=== PATIENT | female | born 1965 | race Hispanic/Latino ===

== ENCOUNTER 2018-12-26 11:06 | Inpatient (IN) | payer MEDICARE ==
[2018-12-26] VITALS (10 sets, daily range): BP systolic 114–175; BP diastolic 69–94
[~2018-12-26] VITALS: Ht 167.6 cm; Wt 93.9 kg
[2018-12-26 11:34] LABS: BASOPHILS % (AUTO) 0.3 % (0.0-5.0); HEMATOCRIT 44.9 % (36-48); LYMPHOCYTES % (AUTO) 4.2 % (21.0-51.0); MEAN CORPUSCULAR HEMOGLOBIN 28.7 pg (27.0-33.0); MEAN CORPUSCULAR HGB CONC 32.8 g/dL (32.0-36.0); MEAN CORPUSCULAR VOLUME 87.6 fL (79-99); NEUTROPHILS % (AUTO) 91.5 % (40.0-77.0); PLATELET COUNT (AUTO) 598 K/uL (130-400); RED BLOOD CELL COUNT(AUTO) 5.13 MIL/uL (4.00-5.50); RED CELL DISTRIBUTION WIDTH 13.6 % (11.0-15.5); WHITE BLOOD COUNT (AUTO) 29.6 K/uL (4.8-10.8)
[2018-12-26] MEDS ORDERED: SODIUM CHLORIDE 0.9% 1000ML 2,000 ML IV ONE (11:35)
[2018-12-26 11:50] LABS: APPEARANCE,URINE Clear (CLEAR); BILIRUBIN,URINE Negative (NEGATIVE); COLOR,URINE Yellow (YELLOW); GLUCOSE, URINE (UA) >=1000 mg/dL (NEGATIVE); KETONES,URINE >=80 mg/dL (NEGATIVE); LEUKOCYTE ESTERASE ,URINE Negative (NEGATIVE); NITRATE,URINE Negative (NEGATIVE); OCCULT BLOOD,URINE Large (NEGATIVE); PH,URINE 5.5 (5.0-8.0); PROTEIN,URINE POS 2+ mg/dL (NEGATIVE)
[2018-12-26 11:55] LABS: BACTERIA,URINE Rare /HPF (None Seen); MUCUS,URINE Moderate LPF (None Seen); RBC,URINE 0-1 /HPF (0-1); SQUAMOUS EPITHELIAL CELL,UR Rare /HPF (0-2); WBC,URINE 0-1 /HPF (0-1)
[2018-12-26 12:00] LABS: ABG BASE EXCESS -21.7 mmol/L (-2.0-3.0); ABG HCO3 4.9 mmol/L (21.0-28.0); ABG OXYGEN SATURATION 98.2 % (95.0-99.0); ABG PCO2 < 17 mmHg (32-45)
[2018-12-26 12:00] LABS: ALANINE AMINOTRANSFERASE 12 U/L (12-78); ALBUMIN 2.2 g/dL (3.5-5.0); ASPARTATE AMINOTRANSFERASE 17 U/L (10-37); BILIRUBIN,TOTAL 0.6 mg/dL (0.2-1.0); CREATINE KINASE, TOTAL 300 U/L (21-232); GLOMERULAR FILTR. RATE CALC 27 mL/min (>60); MYOGLOBIN 672 ng/mL (10-92); POTASSIUM 3.1 mmol/L (3.5-5.1); SODIUM SERUM 120 mmol/L (136-145); TOTAL PROTEIN, SERUM 8.2 g/dL (6.0-8.3); TROPONIN I < 0.04 ng/mL (0.00-0.06); UREA NITROGEN, BLOOD 41 mg/dL (7-18)
[2018-12-26 12:04] LABS: CARBON DIOXIDE 7 mmol/L (21-32); CHLORIDE 82 mmol/L (101-111)
[2018-12-26 12:05] LABS: PARTIAL THROMBOPLASTIN TIME 27.8 SEC (26.3-35.5); PROTHROMBIN TIME 10.5 SEC (9.6-11.6)
[2018-12-26] MEDS ORDERED: CEFTRIAXONE SODIUM 1 GM ONE (12:10)
[2018-12-26 12:14] LABS: GLUCOSE,RANDOM 760 mg/dL (70-105)
[2018-12-26] MEDS ORDERED: ONDANSETRON HCL 4 MG/2 ML VIAL ONE (12:25)
[2018-12-26] MEDS ORDERED: POTASSIUM BICARB/CIT AC 25 MEQ TABLET.EFF ONE (13:11)
[2018-12-26] MEDS ORDERED: POTASSIUM CHLORIDE 20MEQ/100ML 200 ML IV ONE (13:30)
[2018-12-26] MEDS ORDERED: LIDOCAINE HCL-MPF 1% 2ML VIAL ONE ×2 (13:30→20:18)
[2018-12-26] MEDS ORDERED: VANCOMYCIN 1GM+NS 250ML 250 ML IV ONE (13:30)
[2018-12-26 13:39] LABS: MAGNESIUM 2.2 mg/dL (1.80-2.40); PHOSPHORUS 3.5 mg/dL (2.5-4.9)
[2018-12-26 13:42] LABS: HEMOGLOBIN A1C 11.7 % (4.0-6.0)
[2018-12-26] MEDS ORDERED: INSULIN REGULAR, HUMAN 3ML 100 UNIT in SODIUM CHLORIDE 0.9% 99 ML IV PRN ×2 (13:45)
[2018-12-26] MEDS ORDERED: SODIUM CHLORIDE 0.9% 1000ML 1,000 ML IV ONE ×3 (14:40→20:36)
[2018-12-26] MEDS ORDERED: DEXTROSE 5 %-0.45 % NACL 1,000 ML IV PRN ×3 (14:54→15:01)
[2018-12-26] MEDS ORDERED: SODIUM CHLORIDE 0.9% 1000ML 1,000 ML IV SCH ×4 (14:54→15:01)
[2018-12-26] MEDS: SODIUM CHLORIDE 0.9% 1000ML 1,000 ML IV SCH ×6 (14:54→21:41)
[2018-12-26] MEDS ORDERED: POTASSIUM CHLORIDE 10MEQ/100ML 100 ML IV PRN ×3 (15:00→15:15)
[2018-12-26] MEDS ORDERED: VANCOMYCIN PROTOCOL PER PHARMACY IV SCH (15:15)
[2018-12-26] MEDS ORDERED: IPRATROPIUM/ALBUTEROL SULFATE 3 ML SOLUTION IH PRN (15:15)
[2018-12-26] MEDS: INSULIN HUMULIN R 100 UNIT/ML 3ML IV SCH (15:15)
[2018-12-26] MEDS ORDERED: ACETAMINOPHEN 325 MG TAB PO PRN (15:15)
[2018-12-26] MEDS ORDERED: ONDANSETRON HCL 4 MG/2 ML VIAL IV PRN (15:15)
[2018-12-26] MEDS ORDERED: ZOSYN 3.375GM+NS 50ML 50 ML IV ONE (16:42)
[2018-12-26] MEDS: CEFTAZIDIME PENTAHYDRATE 1 GM/VIAL IVP SCH (17:00)
[2018-12-26 18:46] LABS: CREATININE 1.6 mg/dL (0.5-1.5); POTASSIUM 3.2 mmol/L (3.5-5.1)
[2018-12-26] MEDS ORDERED: POTASSIUM CHLORIDE 20MEQ/100ML 100 ML IV ONE (20:18)
[2018-12-26] MEDS: ZOSYN 3.375GM+NS 50ML 50 ML IV SCH (21:00)
--- NOTE | 2018-12-26 22:22 | NUR ---
Pt. admitted from ER came in to ICU @2044 accompanied by her .Pt. is drowsy but arousable, appears weak and ill looking but answering questions and following commands.Pt. denies ay pain and not in any form of distress.Pt. is on insulin drip @ 3ml/hr as per report.K level 3.2 with ongoing Potassium coverage and all NS bolus and IV Antibiotic were given as per ER nurse Armaan.Spoke to ER nurse Whit,regarding consult for pulmo and surgeon ,she said both were already notified pending to see the pt.Dr. Meadows pending to be consulted in am.Will continue to monitor pt.
[2018-12-26 23:43] LABS: CREATININE 1.6 mg/dL (0.5-1.5)
[2018-12-27] VITALS (37 sets, daily range): BP systolic 119–171; BP diastolic 60–107
--- NOTE | 2018-12-27 00:40 | NUR ---
PATIENT SERVICES ASSISTANT AJ was notified regarding pt has right leg ulcer and not left and on insulin drip which is held at this time due to potassium level trending down which is 3.0 and will be covered.Okay to use Potassium 20 meq IV as per protocol.Notified about high BP received new order.
[2018-12-27] MEDS ORDERED: POTASSIUM CHLORIDE 20MEQ/100ML 200 ML IV ONE (00:44)
[2018-12-27] MEDS ORDERED: HYDRALAZINE HCL 20 MG/ML VIAL IV PRN (00:45)
[2018-12-27] MEDS: SODIUM CHLORIDE 0.9% 1000ML 1,000 ML IV SCH ×7 (01:01→22:44)
[2018-12-27] MEDS: POTASSIUM CHLORIDE 20MEQ/100ML 100 ML IV SCH ×3 (01:56→23:04)
[2018-12-27] MEDS: CEFTAZIDIME PENTAHYDRATE 1 GM/VIAL IVP SCH (04:50)
[2018-12-27] MEDS: ZOSYN 3.375GM+NS 50ML 50 ML IV SCH ×3 (04:50→20:02)
[2018-12-27 05:52] LABS: POTASSIUM 3.9 mmol/L (3.5-5.1)
[2018-12-27 06:01] LABS: EOSINOPHILS % (AUTO) 0.7 % (0.0-8.0); HEMATOCRIT 35.3 % (36-48); LYMPHOCYTES % (AUTO) 5.9 % (21.0-51.0); MEAN CORPUSCULAR HEMOGLOBIN 29.5 pg (27.0-33.0); MEAN CORPUSCULAR HGB CONC 35.6 g/dL (32.0-36.0); MONOCYTES % (AUTO) 4.8 % (3.0-13.0); NEUTROPHILS % (AUTO) 87.6 % (40.0-77.0); PLATELET COUNT (AUTO) 385 K/uL (130-400); RED BLOOD CELL COUNT(AUTO) 4.25 MIL/uL (4.00-5.50); RED CELL DISTRIBUTION WIDTH 14.1 % (11.0-15.5); WHITE BLOOD COUNT (AUTO) 22.2 K/uL (4.8-10.8)
[2018-12-27 06:08] LABS: ALBUMIN 1.8 g/dL (3.5-5.0); BILIRUBIN,TOTAL 0.3 mg/dL (0.2-1.0); CREATININE 1.4 mg/dL (0.5-1.5); TOTAL PROTEIN, SERUM 6.7 g/dL (6.0-8.3)
[2018-12-27] MEDS ORDERED: COMPOUND IV REFRIGERATED 1 EACH IVSOLN MISC PRN (06:30)
--- NOTE | 2018-12-27 07:19 | NUR ---
Pt. remained more alert and responsive,on insulin drip @1 unit/hr.Pending to follow up consult on today.Needs dressing order for wound.Endorsed care to incoming NOD at bedside using SBAr all questions answered.
[2018-12-27] MEDS: VANCOMYCIN 1.25 GM in SODIUM CHLORIDE 0.9% 250 ML IV SCH (08:36)
[2018-12-27] MEDS: FAMOTIDINE/PF 20 MG/2 ML VIAL IV SCH (08:36)
[2018-12-27] MEDS: ENOXAPARIN SODIUM 40 MG/0.4 ML SYRINGE SQ SCH (08:39)
--- NOTE | 2018-12-27 10:10 | NUR ---
WILLIAM MONET FOR DR GONZALEZ AT BEDSIDE TO EVALUATE PT, NO NEW ORDERS GIVEN AT THIS TIME.
--- NOTE | 2018-12-27 13:00 | NUR ---
DR VARNER AT BEDSIDE TO EVALUATE PATIENT, PER MD, NO NEED TO KEEP PATIENT ON CONTACT PRECAUTIONS, SINCE WOUNDS REMAIN WITH SCABS.
--- NOTE | 2018-12-27 13:55 | NUR ---
DR GONSALEZ AT BEDSIDE, NEW ORDERS GIVEN
--- NOTE | 2018-12-27 14:30 | NUR ---
DR MOTTA NOTIFIED VIA PHONE ABOUT NEW CONSULT, STATED HE'LL SEE PATIENT IN THE MORNING.
[2018-12-27] MEDS: INSULIN HUMULIN R 100 UNIT/ML 3ML IV SCH (15:15)
--- NOTE | 2018-12-27 17:28 | NUR ---
DC PLAN VISITED WITH PATIENT. PATIENT LIVES ALONE. INDEPENDENT ABLE TO PERFORM ADL'S. PROVIDER 5 HRS A DAY. PATIENT HAS WALKER, CANE, NEBULIZER. PATIENT HAS SOME WEAKNESS POST PROCEDURE RECOMMENDS SNF. ANDREA FOR [facility]. INFO SENT JONATHAN DARLING KNOW. Addendum: 12/27/18 at 1732 by JOE COLBY RN CM Amended: Links added. Addendum: 12/28/18 at 1301 by JOE COLBY RN CM WRONG PATIENT RECHARTED SEE NEXT NOTE.
--- NOTE | 2018-12-27 17:33 | NUR ---
DC PLAN VISITED WITH PATIENT. PATIENT AMS QUESTIONS ANSWERED BY SPOUSE. PATIENT LIVES WITH SPOUSE. INDEPENDENT ABLE TO PERFORM ADL'S. PATIENT HAS NO SERVICES OR DME'S. CM WILL CONTINUE TO FOLLOW. Addendum: 12/27/18 at 1735 by JOE COLBY RN CM Amended: Links added.
[2018-12-27 19:47] LABS: CREATININE 1.4 mg/dL (0.5-1.5)
[2018-12-27 19:55] LABS: POTASSIUM 2.8 mmol/L (3.5-5.1)
--- NOTE | 2018-12-27 20:02 | NUR ---
Insulin drip stopped K level 2.8 .Will cover potassium as per protocol
--- NOTE | 2018-12-27 22:48 | NUR ---
here and examined pt,received new order to start pt on sliding scale insulin #1 and lantus 20 units bid.Will carry order.
[2018-12-28] VITALS (18 sets, daily range): BP systolic 120–158; BP diastolic 67–90
[2018-12-28] MEDS: SODIUM CHLORIDE 0.9% 1000ML 1,000 ML IV SCH ×4 (00:21→20:34)
[2018-12-28] MEDS: INSULIN HUMULIN R 100 UNIT/ML 3ML SQ SCH ×5 (01:03→22:09)
[2018-12-28 03:49] LABS: BASOPHILS % (AUTO) 0.1 % (0.0-5.0); EOSINOPHILS % (AUTO) 0.1 % (0.0-8.0); HEMATOCRIT 32.4 % (36-48); MEAN CORPUSCULAR HEMOGLOBIN 28.5 pg (27.0-33.0); MEAN CORPUSCULAR HGB CONC 34.5 g/dL (32.0-36.0); MEAN CORPUSCULAR VOLUME 82.5 fL (79-99); MONOCYTES % (AUTO) 6.2 % (3.0-13.0); NEUTROPHILS % (AUTO) 83.6 % (40.0-77.0); PLATELET COUNT (AUTO) 323 K/uL (130-400); RED BLOOD CELL COUNT(AUTO) 3.93 MIL/uL (4.00-5.50); RED CELL DISTRIBUTION WIDTH 13.8 % (11.0-15.5); WHITE BLOOD COUNT (AUTO) 12.4 K/uL (4.8-10.8)
[2018-12-28 04:07] LABS: ALBUMIN 1.7 g/dL (3.5-5.0); CREATININE 1.3 mg/dL (0.5-1.5); MAGNESIUM 1.9 mg/dL (1.80-2.40)
[2018-12-28 04:13] LABS: POTASSIUM 2.9 mmol/L (3.5-5.1)
[2018-12-28] MEDS: ZOSYN 3.375GM+NS 50ML 50 ML IV SCH ×3 (04:50→20:23)
[2018-12-28 05:25] LABS: BILIRUBIN,TOTAL 0.2 mg/dL (0.2-1.0); TOTAL PROTEIN, SERUM 6.2 g/dL (6.0-8.3)
[2018-12-28] MEDS: POTASSIUM CHLORIDE 20MEQ/100ML 100 ML IV SCH ×3 (05:25→16:57)
--- NOTE | 2018-12-28 07:11 | NUR ---
Pt.condition remained the same .Pending to cover 2nd dose of Potassium.Bedside report given to incoming NOD using SBAR all questions answered.
[2018-12-28] MEDS ORDERED: INSULIN GLARGINE 100 UNITS/ML 10 ML VIAL SQ SCH (07:30)
[2018-12-28] MEDS: ASCORBIC ACID 500 MG TAB PO SCH (10:01)
[2018-12-28] MEDS: FAMOTIDINE/PF 20 MG/2 ML VIAL IV SCH (10:01)
[2018-12-28] MEDS: ENOXAPARIN SODIUM 40 MG/0.4 ML SYRINGE SQ SCH (10:01)
[2018-12-28] MEDS: ZINC SULFATE 220 CAPSULE PO SCH (10:07)
[2018-12-28] MEDS: VANCOMYCIN 1.25 GM in SODIUM CHLORIDE 0.9% 250 ML IV SCH (10:20)
--- NOTE | 2018-12-28 10:53 | NUR ---
2nd dose of potassium given as per protocol
--- NOTE | 2018-12-28 13:00 | NUR ---
Dr. Garcia rounded and reviewed plan of care for the day. Ordered for patient to be transferred, electrolyte replacement potassium po. Was notified about potassium level of 2.5.
[2018-12-28] MEDS: POTASSIUM CHLORIDE 10% ELIXIR 20 MEQ/15 ML UDCUP PO PRN ×2 (14:10→20:35)
--- NOTE | 2018-12-28 15:54 | NUR ---
Yadiel THOMAS for Dr. Danielle thomas. Ordered for wound on the right leg to be cleaned with Betadine
[2018-12-28] MEDS: POTASSIUM CHLORIDE 20 MEQ ERTAB PO PRN ×2 (17:05→18:42)
[2018-12-28] MEDS ORDERED: INSULIN HUMULIN R 100 UNIT/ML 3ML ONE (22:05)
[2018-12-29] VITALS (7 sets, daily range): BP systolic 121–163; BP diastolic 72–87
[2018-12-29] MEDS: SODIUM CHLORIDE 0.9% 1000ML 1,000 ML IV SCH ×3 (03:01→16:21)
--- NOTE | 2018-12-29 03:09 | NUR ---
spooling supervisor herer and ordered to transfewr pt to room 224.Report given to incoming NOD using SBAR all questions answered.
--- NOTE | 2018-12-29 03:20 | NUR ---
ASSESSMENT PATIENT TRANSFERRED VIA BED. NO COMPLAINTS OF PAIN AT THIS TIME. NO SIGNS OF DISTRESS. NO SHORTNESS OF BREATH NOTED. PATIENTS CALL LIGHT AND BEDSIDE TABLE WITHIN REACH.
[2018-12-29 04:19] LABS: BASOPHILS % (AUTO) 0.1 % (0.0-5.0); EOSINOPHILS % (AUTO) 0.3 % (0.0-8.0); LYMPHOCYTES % (AUTO) 14.7 % (21.0-51.0); MEAN CORPUSCULAR HEMOGLOBIN 28.2 pg (27.0-33.0); MEAN CORPUSCULAR HGB CONC 33.9 g/dL (32.0-36.0); MEAN CORPUSCULAR VOLUME 83.2 fL (79-99); MONOCYTES % (AUTO) 7.7 % (3.0-13.0); NEUTROPHILS % (AUTO) 77.2 % (40.0-77.0); PLATELET COUNT (AUTO) 319 K/uL (130-400); RED BLOOD CELL COUNT(AUTO) 4.08 MIL/uL (4.00-5.50); RED CELL DISTRIBUTION WIDTH 13.9 % (11.0-15.5)
[2018-12-29 04:33] LABS: ALBUMIN 1.8 g/dL (3.5-5.0); BILIRUBIN,TOTAL 0.2 mg/dL (0.2-1.0); TOTAL PROTEIN, SERUM 6.5 g/dL (6.0-8.3)
[2018-12-29 04:58] LABS: POTASSIUM 2.9 mmol/L (3.5-5.1)
[2018-12-29] MEDS: ZOSYN 3.375GM+NS 50ML 50 ML IV SCH ×3 (06:23→22:10)
[2018-12-29] MEDS: FAMOTIDINE 20MG TAB 20 MG TAB PO SCH (09:27)
[2018-12-29] MEDS: ASCORBIC ACID 500 MG TAB PO SCH (09:27)
[2018-12-29] MEDS: ZINC SULFATE 220 CAPSULE PO SCH (09:27)
[2018-12-29] MEDS: ENOXAPARIN SODIUM 40 MG/0.4 ML SYRINGE SQ SCH (09:28)
[2018-12-29] MEDS ORDERED: POTASSIUM CHLORIDE 10MEQ/100ML 10 MEQ/100 ML ML IV SCH (10:00)
[2018-12-29 10:18] LABS: MAGNESIUM 1.8 mg/dL (1.80-2.40); PHOSPHORUS 0.9 mg/dL (2.5-4.9)
[2018-12-29] MEDS: VANCOMYCIN 1.25 GM in SODIUM CHLORIDE 0.9% 250 ML IV SCH (11:01)
[2018-12-29] MEDS: POTASSIUM CHLORIDE 10% ELIXIR 20 MEQ/15 ML UDCUP PO PRN ×2 (11:01→13:48)
[2018-12-29] MEDS: INSULIN HUMULIN R 100 UNIT/ML 3ML SQ SCH ×2 (11:39→17:00)
[2018-12-29] MEDS: ACETAMINOPHEN 325 MG TAB PO PRN (13:40)
[2018-12-29] MEDS ORDERED: FLUCONAZOLE 200 MG/NS 100 ML 100 ML IV SCH (20:15)
[2018-12-29] MEDS: NEUTRA-PHOS PACKET 1 EACH PO SCH (22:14)
[2018-12-29] MEDS: INSULIN GLARGINE 100 UNITS/ML 10 ML VIAL SQ SCH (22:18)
[2018-12-29] MEDS: INSULIN LISPRO 100 UNIT/ML 3ML SQ SCH (22:19)
[2018-12-30] MEDS: SODIUM CHLORIDE 0.9% 1000ML 1,000 ML IV SCH ×2 (02:55→22:03)
[2018-12-30] MEDS ORDERED: MAGNESIUM 2GM PREMIX 50ML 50 ML IV ONE (02:56)
[2018-12-30] MEDS ORDERED: MAGNESIUM 2GM PREMIX 50ML 50 ML IV PRN (03:00)
[2018-12-30 03:28] VITALS: BP 149/84
[2018-12-30 04:21] LABS: MEAN CORPUSCULAR HEMOGLOBIN 28.6 pg (27.0-33.0); MEAN CORPUSCULAR HGB CONC 34.8 g/dL (32.0-36.0); MEAN CORPUSCULAR VOLUME 82.3 fL (79-99); NUCLEATED RED BLOOD CELLS 0.1 % (0.0-0.19); PLATELET COUNT (AUTO) 304 K/uL (130-400); RED BLOOD CELL COUNT(AUTO) 4.13 MIL/uL (4.00-5.50); RED CELL DISTRIBUTION WIDTH 13.7 % (11.0-15.5); WHITE BLOOD COUNT (AUTO) 12.3 K/uL (4.8-10.8)
[2018-12-30 04:38] LABS: MAGNESIUM 1.6 mg/dL (1.80-2.40); PHOSPHORUS 0.8 mg/dL (2.5-4.9); POTASSIUM 3.2 mmol/L (3.5-5.1)
[2018-12-30] MEDS: POTASSIUM CHLORIDE 20 MEQ ERTAB PO PRN ×2 (05:44→08:42)
[2018-12-30] MEDS: ZOSYN 3.375GM+NS 50ML 50 ML IV SCH ×3 (05:44→22:03)
[2018-12-30] MEDS: INSULIN LISPRO 100 UNIT/ML 3ML SQ SCH ×7 (06:08→21:58)
[2018-12-30] MEDS ORDERED: INSULIN HUMULIN R 100 UNIT/ML 3ML SQ SCH (07:30)
[2018-12-30 07:50] VITALS: BP 141/75
[2018-12-30] MEDS: ZINC SULFATE 220 CAPSULE PO SCH (08:42)
[2018-12-30] MEDS: ASCORBIC ACID 500 MG TAB PO SCH (08:43)
[2018-12-30] MEDS: FAMOTIDINE 20MG TAB 20 MG TAB PO SCH (08:43)
[2018-12-30] MEDS: NEUTRA-PHOS PACKET 1 EACH PO SCH ×4 (08:44→22:06)
[2018-12-30] MEDS: FLUCONAZOLE 200 MG/NS 100 ML 100 ML IV SCH (08:46)
[2018-12-30] MEDS: VANCOMYCIN 1.25 GM in SODIUM CHLORIDE 0.9% 250 ML IV SCH (11:03)
[2018-12-30] MEDS: ENOXAPARIN SODIUM 40 MG/0.4 ML SYRINGE SQ SCH (11:07)
[2018-12-30 15:41] VITALS: BP 141/83
[2018-12-30 19:39] VITALS: BP 130/70
[2018-12-30] MEDS: INSULIN GLARGINE 100 UNITS/ML 10 ML VIAL SQ SCH (21:58)
[2018-12-30] MEDS: ACETAMINOPHEN 325 MG TAB PO PRN (22:04)
[2018-12-30] MEDS ORDERED: POTASSIUM PHOS 15 mMOL+NS250ML 250 ML IV PRN (22:15)
[2018-12-30 23:35] VITALS: BP 124/68
[2018-12-31 04:25] VITALS: BP 128/72
[2018-12-31 04:39] LABS: HEMATOCRIT 29.4 % (36-48); MEAN CORPUSCULAR HEMOGLOBIN 28.1 pg (27.0-33.0); MEAN CORPUSCULAR HGB CONC 33.6 g/dL (32.0-36.0); MEAN CORPUSCULAR VOLUME 83.6 fL (79-99); PLATELET COUNT (AUTO) 227 K/uL (130-400); RED BLOOD CELL COUNT(AUTO) 3.51 MIL/uL (4.00-5.50); RED CELL DISTRIBUTION WIDTH 14.2 % (11.0-15.5); WHITE BLOOD COUNT (AUTO) 11.9 K/uL (4.8-10.8)
[2018-12-31 04:53] LABS: MAGNESIUM 2.1 mg/dL (1.80-2.40); PHOSPHORUS 1.7 mg/dL (2.5-4.9)
[2018-12-31 04:55] LABS: POTASSIUM 2.9 mmol/L (3.5-5.1)
[2018-12-31] MEDS: ZOSYN 3.375GM+NS 50ML 50 ML IV SCH ×3 (05:13→21:59)
[2018-12-31] MEDS: POTASSIUM CHLORIDE 20 MEQ ERTAB PO PRN ×3 (05:13→21:59)
[2018-12-31] MEDS: INSULIN LISPRO 100 UNIT/ML 3ML SQ SCH ×7 (06:29→22:15)
[2018-12-31 07:41] VITALS: BP 141/83
[2018-12-31] MEDS: FLUCONAZOLE 200 MG/NS 100 ML 100 ML IV SCH (10:06)
[2018-12-31] MEDS: ASCORBIC ACID 500 MG TAB PO SCH (10:06)
[2018-12-31] MEDS: ZINC SULFATE 220 CAPSULE PO SCH (10:06)
[2018-12-31] MEDS: NEUTRA-PHOS PACKET 1 EACH PO SCH ×4 (10:06→21:59)
[2018-12-31] MEDS: FAMOTIDINE 20MG TAB 20 MG TAB PO SCH (10:06)
[2018-12-31] MEDS: ENOXAPARIN SODIUM 40 MG/0.4 ML SYRINGE SQ SCH (10:07)
[2018-12-31] MEDS: VANCOMYCIN 1.25 GM in SODIUM CHLORIDE 0.9% 250 ML IV SCH (10:29)
[2018-12-31 11:40] VITALS: BP 158/85
--- NOTE | 2018-12-31 15:13 | NUR ---
[facility] CONSULT PATIENT ASSESSED REQUESTED: PATIENT PRESENTS WITH ULCER TO LEFT LEG LATERAL/ POSTERIOR; [facility] RECOMMENDATIONS SUBMITTED. Addendum: 12/31/18 at 1515 by GELA HUNTER LVN LVN W Amended: Links added.
[2018-12-31 15:35] VITALS: BP 134/88
[2018-12-31] MEDS ORDERED: LIDOCAINE HCL-MPF 1% 2ML VIAL ONE (18:11)
[2018-12-31] MEDS: POTASSIUM CHLORIDE 10% ELIXIR 20 MEQ/15 ML UDCUP PO PRN (18:13)
[2018-12-31] MEDS: POTASSIUM CHLORIDE 20MEQ/100ML 100 ML IV SCH (18:14)
[2018-12-31] MEDS: ACETAMINOPHEN 325 MG TAB PO PRN (18:30)
[2018-12-31 19:18] VITALS: BP 151/83
[2018-12-31] MEDS ORDERED: INSULIN GLARGINE 100 UNITS/ML 10 ML VIAL SQ SCH (21:00)
[2018-12-31 23:17] VITALS: BP 160/89
[2019-01-01 00:45] VITALS: BP 145/85
--- NOTE | 2019-01-01 02:00 | NUR ---
PATIENT C/O PAIN TO CURRENT IV. NEW IV STARTED TO RAC BY CÉSAR ANGELO
[2019-01-01 03:37] VITALS: BP 144/76
--- NOTE | 2019-01-01 04:53 | NUR ---
ASSESSMENT PATIENT RESTING IN BED. NO C/O OF CHEST PAIN OR SOB. RLE DRESSING CDI. DAY SHIFT CHANGED DRESSING. PATIENT DOES HAVE EDEMA TO BUE AND BLE. PATIENT IS NON COMPLIANT WITH DIET. PATIENT HAS FRIED CHICKEN AT BEDSIDE. BLOOD SUGAR IN 400s. Mold Swabber aware. NO ORDERS GIVEN. TOLERATING ZOSYN. NO C/O N/V/D OR RASH.
[2019-01-01] MEDS: INSULIN LISPRO 100 UNIT/ML 3ML SQ SCH ×6 (05:58→16:28)
[2019-01-01] MEDS: ZOSYN 3.375GM+NS 50ML 50 ML IV SCH ×2 (06:37→13:54)
[2019-01-01 06:47] LABS: ALBUMIN 1.5 g/dL (3.5-5.0); BILIRUBIN,TOTAL 0.2 mg/dL (0.2-1.0); CREATININE 0.9 mg/dL (0.5-1.5); POTASSIUM 3.4 mmol/L (3.5-5.1); TOTAL PROTEIN, SERUM 6.2 g/dL (6.0-8.3)
[2019-01-01 07:26] VITALS: BP 141/84
--- NOTE | 2019-01-01 07:45 | NUR ---
AM ASSESSMENT PT SITTING IN BED, RESTING. A/O X 3. NO SOB. NO DISTRESS NOTED. DENIES CHEST PAIN OR DISCOMFORT. DENIES PALPITATIONS. DENIES PAIN TO RLE ULCER @ THIS TIME. TELE: STACH. DENIES N/V AND/OR DIARRHEA. BEDREST. PHYS THERAPY TO EVAL TODAY. INSTRUCTED TO CALL FOR ASSISTANCE. CALL MARIKA W/IN REACH.
[2019-01-01] MEDS: FLUCONAZOLE 200 MG/NS 100 ML 100 ML IV SCH (08:09)
[2019-01-01] MEDS: FAMOTIDINE 20MG TAB 20 MG TAB PO SCH (08:09)
[2019-01-01] MEDS: VANCOMYCIN 1.25 GM in SODIUM CHLORIDE 0.9% 250 ML IV SCH (08:09)
[2019-01-01] MEDS: ZINC SULFATE 220 CAPSULE PO SCH (08:09)
[2019-01-01] MEDS: ASCORBIC ACID 500 MG TAB PO SCH (08:09)
[2019-01-01] MEDS: ENOXAPARIN SODIUM 40 MG/0.4 ML SYRINGE SQ SCH (08:10)
[2019-01-01] MEDS: NEUTRA-PHOS PACKET 1 EACH PO SCH ×3 (08:12→16:40)
[2019-01-01] MEDS: ACETAMINOPHEN 325 MG TAB PO PRN ×2 (11:42→16:54)
[2019-01-01 11:45] VITALS: BP 152/92
[2019-01-01 13:36] LABS: INR 0.92 (0.85-1.15); PROTHROMBIN TIME 9.7 SEC (9.6-11.6)
[2019-01-01] MEDS ORDERED: HONEY 1 APPL/ML TUBE TP SCH ×2 (14:30)
--- NOTE | 2019-01-01 15:08 | NUR ---
DC PLAN VISITED WITH PATIENT. ANDREA SIGNED FOR [facility]. INFO SENT REP NOTIFIED AND VISITED. [facility] Addendum: 01/01/19 at 1509 by JOE COLBY RN CM Amended: Links added.
[2019-01-01 15:21] VITALS: BP 147/80
--- NOTE | 2019-01-01 15:37 | NUR ---
RD NOTIFICATION DX: DKA, LEG GANGRENE, HYPOVOLEMIA, METABOLIC ENCEPHALOPATHY. HX: HTN, DM, HYPERLIPIDEMIA. DIET: HEART HEALTHY. PO INTAKE 100% AND HAS GOOD APPETITE PER PT. LBM: 12/31. PT ADMITS TO NOT FOLLOW DM DIET AT HOME. PT ONLY TAKES MEDICATIONS AT HOME. PT STATED SHE IS STILL HUNGRY BETWEEN MEALS, PT WOULD LIKE SNACKS. PT WAS EDUCATED IN THE PAST REGARDING DM2 DIET, HOWEVER IS NON-COMPLIANT. RD PROVIDED DM DIET AND NUTRITION EDUCATION. MATERIALS PROVIDED. RD RECOMMENDS CONTINUE CURRENT DIET, ADD 75GMCCD TO DIET ORDER. OFFER DM SNACKS BETWEEN MEALS. RD PROVIDED DM DIET AND NUTRITION EDUCATION. RD WILL CONTINUE TO MONITOR AND FOLLOW UP NEEDED. Addendum: 01/01/19 at [address] Amended: Links added.
--- NOTE | 2019-01-01 15:39 | NUR ---
DIET EDUCATION PT WAS EDUCATED IN THE PAST REGARDING DM2 DIET, HOWEVER IS NON-COMPLIANT. [facility] PROVIDED DM DIET AND NUTRITION EDUCATION. MATERIALS PROVIDED. PT WAS ENCOURAGED TO LET US KNOW IF SHE HAD ANY QUESTIONS OR CONCERNS REGARDING DM DIET AND NUTRITION. Addendum: 01/01/19 at [address] Amended: Links added.
--- NOTE | 2019-01-01 17:06 | NUR ---
DISCHARGE MED REC FAXED TO [facility].
--- NOTE | 2019-01-01 17:51 | NUR ---
DISCHARGE REPORT GIVEN TO FRANCISCO AREVALO LVN. Addendum: 01/01/19 at 1911 by OSMAN ARANGO RN RN [facility]NR TRANSPORT TO [facility] M[facility]INE PT TO TRANSFER TO [facility].
--- NOTE | 2019-01-01 18:01 | NUR ---
DISCHARGE IV DISCONTINUED @ THIS TIME. TELE CALVIN REMOVED EARLIER.
[2019-01-01 19:05] VITALS: BP 149/89
--- NOTE | 2019-01-01 19:23 | NUR ---
DC PLAN DARLING CALLED PATIENT ACCEPTED AT 1615 PATIENT HAD ONLY BEEN PENDING PICC PLACEMENT FOR DC. LET NURSE AND KNOW. MED REC DONE. JERI SENT. Addendum: 01/01/19 at 1924 by JOE COLBY RN CM Amended: Links added.
== END 2019-01-01 20:15 | DRG 853 ==
LOC: EDH 11:06 → EDHIP 15:01 → 2BH 20:46 → 2DH 12-29 02:42
PROVIDERS: ADMIT Internal Medicine; ATTEND Internal Medicine
PROC: 02HV33Z Insertion of Infusion Device into Superior Vena Cava, Percutaneous Approach (ICD-10-PCS; principal; 2019-01-01)
PROC: 0JBN0ZZ Excision of Right Lower Leg Subcutaneous Tissue and Fascia, Open Approach (ICD-10-PCS; 2019-01-01)
DX: A41.9 Sepsis, unspecified organism (principal); E43 Unspecified severe protein-calorie malnutrition; G93.41 Metabolic encephalopathy; E11.11 Type 2 diabetes mellitus with ketoacidosis with coma; E87.1 Hypo-osmolality and hyponatremia; L03.115 Cellulitis of right lower limb; N17.9 Acute kidney failure, unspecified; M62.82 Rhabdomyolysis; E11.52 Type 2 diabetes mellitus with diabetic peripheral angiopathy with gangrene; L03.116 Cellulitis of left lower limb; L97.919 Non-pressure chronic ulcer of unspecified part of right lower leg with unspecified severity; E66.9 Obesity, unspecified; E78.5 Hyperlipidemia, unspecified; E83.39 Other disorders of phosphorus metabolism; E11.65 Type 2 diabetes mellitus with hyperglycemia; E83.42 Hypomagnesemia; E86.1 Hypovolemia; E87.8 Other disorders of electrolyte and fluid balance, not elsewhere classified; I10 Essential (primary) hypertension; L89.899 Pressure ulcer of other site, unspecified stage; E86.0 Dehydration; E87.6 Hypokalemia; W19.XXXA Unspecified fall, initial encounter; Y93.89 Activity, other specified; Y92.098 Other place in other non-institutional residence as the place of occurrence of the external cause; Y99.8 Other external cause status; Z68.33 Body mass index [BMI] 33.0-33.9, adult; Z74.01 Bed confinement status; Z91.19 Patient's noncompliance with other medical treatment and regimen; Z83.3 Family history of diabetes mellitus; Z82.49 Family history of ischemic heart disease and other diseases of the circulatory system
CPT/HCPCS: 36415; 36600; 70450; 70551; 71045; 80048; 80053; 80202; 81001; 82140; 82550; 82803; 82947; 82948; 83036; 83605; 83735; 83874; 84100; 84132; 84145; 84484; 85025; 85027; 85610; 85730; 87040; 87088; 93005; 93925; 93970; 94664; 97039; 99291; C1894; G0378; J0696; J0713; J1450; J1650; J1815; J2405; J2543; J3370; J3475; J3480; J3490; J7030

== ENCOUNTER → 2019-01-15 | Outpatient (CLI) | payer MEDICARE ==
[~2019-01-15] MED LIST: LIDOCAINE/PRILOCAINE CREAM 5GM TUBE TP ONE
[2019-01-15 15:05] VITALS: BP 134/86
== END | disposition home or self-care (01) ==
LOC: WHH 13:15
PROVIDERS: ATTEND Family Medicine
DX: E11.622 Type 2 diabetes mellitus with other skin ulcer (principal); L97.812 Non-pressure chronic ulcer of other part of right lower leg with fat layer exposed; E11.52 Type 2 diabetes mellitus with diabetic peripheral angiopathy with gangrene; I96 Gangrene, not elsewhere classified; E78.5 Hyperlipidemia, unspecified; E66.01 Morbid (severe) obesity due to excess calories; I10 Essential (primary) hypertension; Z86.73 Personal history of transient ischemic attack (TIA), and cerebral infarction without residual deficits; Z68.1 Body mass index [BMI] 19.9 or less, adult; Y83.5 Amputation of limb(s) as the cause of abnormal reaction of the patient, or of later complication, without mention of misadventure at the time of the procedure
CPT/HCPCS: 11042; 11045; 87070; 87077; 87186; A6248; J3490

== ENCOUNTER → 2019-01-22 | Outpatient (CLI) | payer MEDICARE ==
[~2019-01-22] MED LIST changes: +LIDOCAINE HCL 2% JELLY 5 ML TP ONE; -LIDOCAINE/PRILOCAINE CREAM 5GM TUBE TP ONE
[2019-01-22 14:55] VITALS: BP 126/83
== END | disposition home or self-care (01) ==
LOC: WHH 13:25
PROVIDERS: ATTEND Family Medicine
DX: E11.622 Type 2 diabetes mellitus with other skin ulcer (principal); L97.812 Non-pressure chronic ulcer of other part of right lower leg with fat layer exposed; E11.52 Type 2 diabetes mellitus with diabetic peripheral angiopathy with gangrene; I96 Gangrene, not elsewhere classified; E78.5 Hyperlipidemia, unspecified; E66.01 Morbid (severe) obesity due to excess calories; I10 Essential (primary) hypertension; Z86.73 Personal history of transient ischemic attack (TIA), and cerebral infarction without residual deficits; Z68.1 Body mass index [BMI] 19.9 or less, adult; Y83.5 Amputation of limb(s) as the cause of abnormal reaction of the patient, or of later complication, without mention of misadventure at the time of the procedure
CPT/HCPCS: 11042; 11045

== ENCOUNTER → 2019-02-01 | Outpatient (CLI) | payer MEDICARE ==
[~2019-02-01] MED LIST changes: -LIDOCAINE HCL 2% JELLY 5 ML TP ONE; +LIDOCAINE HCL 4% LTA SOL 4 ML VIAL TP ONE
[2019-02-01 14:56] VITALS: BP 113/78
== END | disposition home or self-care (01) ==
LOC: WHH 13:00
PROVIDERS: ATTEND Family Medicine
DX: E11.622 Type 2 diabetes mellitus with other skin ulcer (principal); L97.812 Non-pressure chronic ulcer of other part of right lower leg with fat layer exposed; E11.52 Type 2 diabetes mellitus with diabetic peripheral angiopathy with gangrene; I96 Gangrene, not elsewhere classified; E78.5 Hyperlipidemia, unspecified; E66.01 Morbid (severe) obesity due to excess calories; I10 Essential (primary) hypertension; Z86.73 Personal history of transient ischemic attack (TIA), and cerebral infarction without residual deficits; Z68.1 Body mass index [BMI] 19.9 or less, adult
CPT/HCPCS: 11042; 11045; A6197

== ENCOUNTER → 2019-02-05 | Outpatient (CLI) | payer MEDICARE ==
[~2019-02-05] MED LIST changes: +LIDOCAINE HCL 2% JELLY 5 ML TP ONE
[2019-02-05 15:27] VITALS: BP 125/98
== END | disposition home or self-care (01) ==
LOC: WHH 13:00
PROVIDERS: ATTEND Family Medicine
DX: T81.89XD Other complications of procedures, not elsewhere classified, subsequent encounter (principal); E11.52 Type 2 diabetes mellitus with diabetic peripheral angiopathy with gangrene; I96 Gangrene, not elsewhere classified; I10 Essential (primary) hypertension; E78.5 Hyperlipidemia, unspecified; E66.01 Morbid (severe) obesity due to excess calories; Z86.73 Personal history of transient ischemic attack (TIA), and cerebral infarction without residual deficits; Y83.8 Other surgical procedures as the cause of abnormal reaction of the patient, or of later complication, without mention of misadventure at the time of the procedure
CPT/HCPCS: 11042; 11045

== ENCOUNTER → 2019-02-11 | Outpatient (CLI) | payer MEDICARE ==
[~2019-02-11] MED LIST changes: +HONEY 1 APPL/ML TUBE TP ONE; -LIDOCAINE HCL 2% JELLY 5 ML TP ONE; -LIDOCAINE HCL 4% LTA SOL 4 ML VIAL TP ONE
[2019-02-11 10:40] VITALS: BP 151/98
== END | disposition home or self-care (01) ==
LOC: WHH 09:45
PROVIDERS: ATTEND Family Medicine
DX: T81.89XD Other complications of procedures, not elsewhere classified, subsequent encounter (principal); E11.52 Type 2 diabetes mellitus with diabetic peripheral angiopathy with gangrene; I96 Gangrene, not elsewhere classified; I10 Essential (primary) hypertension; E78.5 Hyperlipidemia, unspecified; E66.01 Morbid (severe) obesity due to excess calories; Z86.73 Personal history of transient ischemic attack (TIA), and cerebral infarction without residual deficits; Y83.8 Other surgical procedures as the cause of abnormal reaction of the patient, or of later complication, without mention of misadventure at the time of the procedure
CPT/HCPCS: 93922; G0463

== ENCOUNTER → 2019-02-12 | Outpatient (CLI) | payer MEDICARE ==
[~2019-02-12] MED LIST changes: +LIDOCAINE HCL 4% LTA SOL 4 ML VIAL TP ONE
[2019-02-12 15:25] VITALS: BP 96/61
== END | disposition home or self-care (01) ==
LOC: WHH 13:00
PROVIDERS: ATTEND Family Medicine
DX: T81.89XD Other complications of procedures, not elsewhere classified, subsequent encounter (principal); E11.52 Type 2 diabetes mellitus with diabetic peripheral angiopathy with gangrene; I96 Gangrene, not elsewhere classified; I10 Essential (primary) hypertension; E78.5 Hyperlipidemia, unspecified; E66.01 Morbid (severe) obesity due to excess calories; Z86.73 Personal history of transient ischemic attack (TIA), and cerebral infarction without residual deficits; Y83.8 Other surgical procedures as the cause of abnormal reaction of the patient, or of later complication, without mention of misadventure at the time of the procedure
CPT/HCPCS: 11042; 11045

== ENCOUNTER → 2019-02-26 | Outpatient (CLI) | payer MEDICARE ==
[~2019-02-26] MED LIST changes: -HONEY 1 APPL/ML TUBE TP ONE; +LIDOCAINE HCL 2% JELLY 5 ML TP ONE; -LIDOCAINE HCL 4% LTA SOL 4 ML VIAL TP ONE
[2019-02-26 14:20] VITALS: BP 124/79
== END | disposition home or self-care (01) ==
LOC: WHH 12:30
PROVIDERS: ATTEND Family Medicine
DX: T81.89XD Other complications of procedures, not elsewhere classified, subsequent encounter (principal); E11.52 Type 2 diabetes mellitus with diabetic peripheral angiopathy with gangrene; I96 Gangrene, not elsewhere classified; I10 Essential (primary) hypertension; E78.5 Hyperlipidemia, unspecified; E66.01 Morbid (severe) obesity due to excess calories; Z86.73 Personal history of transient ischemic attack (TIA), and cerebral infarction without residual deficits; Y83.8 Other surgical procedures as the cause of abnormal reaction of the patient, or of later complication, without mention of misadventure at the time of the procedure
CPT/HCPCS: 11042; 11045; A6197

== ENCOUNTER → 2019-03-19 | Outpatient (CLI) | payer MEDICARE ==
[~2019-03-19] MED LIST changes: -LIDOCAINE HCL 2% JELLY 5 ML TP ONE; +LIDOCAINE/PRILOCAINE CREAM 5GM TUBE TP ONE
[2019-03-19 15:28] VITALS: BP 144/99
== END | disposition home or self-care (01) ==
LOC: WHH 13:00
PROVIDERS: ATTEND Family Medicine
DX: S81.801D Unspecified open wound, right lower leg, subsequent encounter (principal); E11.52 Type 2 diabetes mellitus with diabetic peripheral angiopathy with gangrene; I96 Gangrene, not elsewhere classified; I10 Essential (primary) hypertension; E78.5 Hyperlipidemia, unspecified; E66.01 Morbid (severe) obesity due to excess calories; Z86.73 Personal history of transient ischemic attack (TIA), and cerebral infarction without residual deficits; X58.XXXD Exposure to other specified factors, subsequent encounter
CPT/HCPCS: 11042; 11045; A6197; J3490

== ENCOUNTER → 2019-04-02 | Outpatient (CLI) | payer MEDICARE ==
[~2019-04-02] MED LIST changes: +HONEY 1 APPL/ML TUBE TP ONE; +LIDOCAINE HCL 4% LTA SOL 4 ML VIAL TP ONE; -LIDOCAINE/PRILOCAINE CREAM 5GM TUBE TP ONE
[2019-04-02 14:52] VITALS: BP 143/97
== END | disposition home or self-care (01) ==
LOC: WHH 13:00
PROVIDERS: ATTEND Family Medicine
DX: S81.801D Unspecified open wound, right lower leg, subsequent encounter (principal); E11.52 Type 2 diabetes mellitus with diabetic peripheral angiopathy with gangrene; I96 Gangrene, not elsewhere classified; I10 Essential (primary) hypertension; E78.5 Hyperlipidemia, unspecified; E66.01 Morbid (severe) obesity due to excess calories; R53.81 Other malaise; Z86.73 Personal history of transient ischemic attack (TIA), and cerebral infarction without residual deficits; X58.XXXD Exposure to other specified factors, subsequent encounter
CPT/HCPCS: 11042; 11045; A6197

== ENCOUNTER → 2019-04-16 | Outpatient (CLI) | payer MEDICARE ==
[2019-04-16 14:57] VITALS: BP 129/68
== END | disposition home or self-care (01) ==
LOC: WHH 13:00
PROVIDERS: ATTEND Family Medicine
DX: S81.801D Unspecified open wound, right lower leg, subsequent encounter (principal); E11.52 Type 2 diabetes mellitus with diabetic peripheral angiopathy with gangrene; I96 Gangrene, not elsewhere classified; I10 Essential (primary) hypertension; E66.01 Morbid (severe) obesity due to excess calories; E78.5 Hyperlipidemia, unspecified; R53.81 Other malaise; Z86.73 Personal history of transient ischemic attack (TIA), and cerebral infarction without residual deficits; X58.XXXD Exposure to other specified factors, subsequent encounter
CPT/HCPCS: 11042; A6197; 17250

== ENCOUNTER → 2019-04-30 | Outpatient (CLI) | payer MEDICARE ==
[~2019-04-30] MED LIST changes: -HONEY 1 APPL/ML TUBE TP ONE; -LIDOCAINE HCL 4% LTA SOL 4 ML VIAL TP ONE; +LIDOCAINE/PRILOCAINE CREAM 5GM TUBE TP ONE
[2019-04-30 15:57] VITALS: BP 145/94
== END | disposition home or self-care (01) ==
LOC: WHH 13:00
PROVIDERS: ATTEND Family Medicine
DX: S81.801D Unspecified open wound, right lower leg, subsequent encounter (principal); E11.52 Type 2 diabetes mellitus with diabetic peripheral angiopathy with gangrene; I96 Gangrene, not elsewhere classified; I10 Essential (primary) hypertension; E66.01 Morbid (severe) obesity due to excess calories; E78.5 Hyperlipidemia, unspecified; R53.81 Other malaise; Z86.73 Personal history of transient ischemic attack (TIA), and cerebral infarction without residual deficits; X58.XXXD Exposure to other specified factors, subsequent encounter
CPT/HCPCS: 15002; A6197; J3490; 11042

== ENCOUNTER → 2019-05-07 | Outpatient (CLI) | payer MEDICARE ==
[2019-05-07 16:43] VITALS: BP 136/90
== END | disposition home or self-care (01) ==
LOC: WHH 13:00
PROVIDERS: ATTEND Family Medicine
DX: E11.622 Type 2 diabetes mellitus with other skin ulcer (principal); L97.212 Non-pressure chronic ulcer of right calf with fat layer exposed; E11.52 Type 2 diabetes mellitus with diabetic peripheral angiopathy with gangrene; I96 Gangrene, not elsewhere classified; I10 Essential (primary) hypertension; E78.5 Hyperlipidemia, unspecified; E66.01 Morbid (severe) obesity due to excess calories; Z86.73 Personal history of transient ischemic attack (TIA), and cerebral infarction without residual deficits
CPT/HCPCS: 11042; 15271; A6197; A6207; J3490; Q4133

== ENCOUNTER → 2019-05-14 | Outpatient (CLI) | payer MEDICARE ==
[2019-05-14 16:26] VITALS: BP 123/78
== END | disposition home or self-care (01) ==
LOC: WHH 13:00
PROVIDERS: ATTEND Family Medicine
DX: T86.828 Other complications of skin graft (allograft) (autograft) (principal); E11.52 Type 2 diabetes mellitus with diabetic peripheral angiopathy with gangrene; I96 Gangrene, not elsewhere classified; I10 Essential (primary) hypertension; E78.5 Hyperlipidemia, unspecified; E66.01 Morbid (severe) obesity due to excess calories; Z86.73 Personal history of transient ischemic attack (TIA), and cerebral infarction without residual deficits; Y83.2 Surgical operation with anastomosis, bypass or graft as the cause of abnormal reaction of the patient, or of later complication, without mention of misadventure at the time of the procedure
CPT/HCPCS: 11042; 15271; A6196; A6197; A6207; Q4133

== ENCOUNTER → 2019-05-21 | Outpatient (CLI) | payer MEDICARE ==
[2019-05-21 15:40] VITALS: BP 132/84
== END | disposition home or self-care (01) ==
LOC: WHH 13:00
PROVIDERS: ATTEND Family Medicine
DX: T86.828 Other complications of skin graft (allograft) (autograft) (principal); E11.52 Type 2 diabetes mellitus with diabetic peripheral angiopathy with gangrene; I96 Gangrene, not elsewhere classified; I10 Essential (primary) hypertension; E78.5 Hyperlipidemia, unspecified; E66.01 Morbid (severe) obesity due to excess calories; Z86.73 Personal history of transient ischemic attack (TIA), and cerebral infarction without residual deficits; Y83.2 Surgical operation with anastomosis, bypass or graft as the cause of abnormal reaction of the patient, or of later complication, without mention of misadventure at the time of the procedure
CPT/HCPCS: 15271; A6196; A6207; A6209; Q4133

== ENCOUNTER → 2019-05-28 | Outpatient (CLI) | payer MEDICARE ==
[2019-05-28 14:52] VITALS: BP 131/82
== END | disposition home or self-care (01) ==
LOC: WHH 13:00
PROVIDERS: ATTEND Family Medicine
DX: T86.828 Other complications of skin graft (allograft) (autograft) (principal); E11.52 Type 2 diabetes mellitus with diabetic peripheral angiopathy with gangrene; I96 Gangrene, not elsewhere classified; I10 Essential (primary) hypertension; E78.5 Hyperlipidemia, unspecified; E66.01 Morbid (severe) obesity due to excess calories; Z86.73 Personal history of transient ischemic attack (TIA), and cerebral infarction without residual deficits; Y83.2 Surgical operation with anastomosis, bypass or graft as the cause of abnormal reaction of the patient, or of later complication, without mention of misadventure at the time of the procedure
CPT/HCPCS: 15271; A6197; A6207; A6209; Q4133

== ENCOUNTER → 2019-06-04 | Outpatient (CLI) | payer MEDICARE ==
[2019-06-04 15:16] VITALS: BP 118/80
== END | disposition home or self-care (01) ==
LOC: WHH 13:00
PROVIDERS: ATTEND Family Medicine
DX: T86.828 Other complications of skin graft (allograft) (autograft) (principal); E11.52 Type 2 diabetes mellitus with diabetic peripheral angiopathy with gangrene; I96 Gangrene, not elsewhere classified; I10 Essential (primary) hypertension; E78.5 Hyperlipidemia, unspecified; E66.01 Morbid (severe) obesity due to excess calories; Z86.73 Personal history of transient ischemic attack (TIA), and cerebral infarction without residual deficits; Y83.2 Surgical operation with anastomosis, bypass or graft as the cause of abnormal reaction of the patient, or of later complication, without mention of misadventure at the time of the procedure
CPT/HCPCS: 15271; A6197; A6207; A6213; Q4133

== ENCOUNTER → 2019-06-11 | Outpatient (CLI) | payer MEDICARE ==
[2019-06-11 14:57] VITALS: BP 132/60
== END | disposition home or self-care (01) ==
LOC: WHH 13:00
PROVIDERS: ATTEND Family Medicine
DX: T86.828 Other complications of skin graft (allograft) (autograft) (principal); E11.622 Type 2 diabetes mellitus with other skin ulcer; L97.211 Non-pressure chronic ulcer of right calf limited to breakdown of skin; E11.52 Type 2 diabetes mellitus with diabetic peripheral angiopathy with gangrene; I96 Gangrene, not elsewhere classified; I10 Essential (primary) hypertension; E78.5 Hyperlipidemia, unspecified; E66.01 Morbid (severe) obesity due to excess calories; Z86.73 Personal history of transient ischemic attack (TIA), and cerebral infarction without residual deficits; Y83.2 Surgical operation with anastomosis, bypass or graft as the cause of abnormal reaction of the patient, or of later complication, without mention of misadventure at the time of the procedure
CPT/HCPCS: 15271; A6196; A6207; Q4133

== ENCOUNTER → 2019-06-18 | Outpatient (CLI) | payer MEDICARE ==
[2019-06-18 14:47] VITALS: BP 119/83
== END | disposition home or self-care (01) ==
LOC: WHH 13:00
PROVIDERS: ATTEND Family Medicine
DX: T86.828 Other complications of skin graft (allograft) (autograft) (principal); E11.52 Type 2 diabetes mellitus with diabetic peripheral angiopathy with gangrene; I96 Gangrene, not elsewhere classified; I10 Essential (primary) hypertension; E78.5 Hyperlipidemia, unspecified; E66.01 Morbid (severe) obesity due to excess calories; Z86.73 Personal history of transient ischemic attack (TIA), and cerebral infarction without residual deficits; Y83.2 Surgical operation with anastomosis, bypass or graft as the cause of abnormal reaction of the patient, or of later complication, without mention of misadventure at the time of the procedure
CPT/HCPCS: 15271; A6196; A6207; Q4133

== ENCOUNTER → 2019-06-25 | Outpatient (CLI) | payer MEDICARE ==
[2019-06-25 15:33] VITALS: BP 120/79
== END | disposition home or self-care (01) ==
LOC: WHH 13:00
PROVIDERS: ATTEND Family Medicine
DX: T86.828 Other complications of skin graft (allograft) (autograft) (principal); E11.52 Type 2 diabetes mellitus with diabetic peripheral angiopathy with gangrene; I96 Gangrene, not elsewhere classified; I10 Essential (primary) hypertension; E78.5 Hyperlipidemia, unspecified; E66.01 Morbid (severe) obesity due to excess calories; Z86.73 Personal history of transient ischemic attack (TIA), and cerebral infarction without residual deficits; Y83.2 Surgical operation with anastomosis, bypass or graft as the cause of abnormal reaction of the patient, or of later complication, without mention of misadventure at the time of the procedure
CPT/HCPCS: 15271; A6196; A6207; Q4133

== ENCOUNTER → 2019-07-02 | Outpatient (CLI) | payer MEDICARE ==
[2019-07-02 15:33] VITALS: BP 130/83
== END | disposition home or self-care (01) ==
LOC: WHH 13:00
PROVIDERS: ATTEND Family Medicine
DX: S81.801D Unspecified open wound, right lower leg, subsequent encounter (principal); E11.52 Type 2 diabetes mellitus with diabetic peripheral angiopathy with gangrene; I96 Gangrene, not elsewhere classified; I10 Essential (primary) hypertension; E78.5 Hyperlipidemia, unspecified; E66.01 Morbid (severe) obesity due to excess calories; Z86.73 Personal history of transient ischemic attack (TIA), and cerebral infarction without residual deficits; X58.XXXD Exposure to other specified factors, subsequent encounter
CPT/HCPCS: A6210; G0463

== ENCOUNTER 2019-07-09 13:00 | Outpatient (CLI) | payer MEDICARE ==
[2019-07-09 14:54] VITALS: BP 116/82
--- NOTE | 2019-07-09 14:57 | NUR ---
Patient was transferred to ED via wheelchair by [facility] staff due to c/o pain to RLE and swelling. Dr. Andrade requesting to have patient evaluated and have doppler study done to r/o DVT. Report called to ED; spoke with Dr. Tavarez Addendum: 07/09/19 at 1501 by LOLI MOREAU RN/ Amended: Links added.
== END 2019-07-09 15:12 | disposition home or self-care (01) ==
LOC: WHH 13:00
PROVIDERS: ATTEND Family Medicine
DX: S81.801D Unspecified open wound, right lower leg, subsequent encounter (principal); E11.52 Type 2 diabetes mellitus with diabetic peripheral angiopathy with gangrene; I96 Gangrene, not elsewhere classified; I10 Essential (primary) hypertension; E78.5 Hyperlipidemia, unspecified; E66.01 Morbid (severe) obesity due to excess calories; Z86.73 Personal history of transient ischemic attack (TIA), and cerebral infarction without residual deficits; X58.XXXD Exposure to other specified factors, subsequent encounter
CPT/HCPCS: G0463

== ENCOUNTER 2019-07-09 14:03 | Emergency (ER) | payer MEDICARE ==
[2019-07-09 14:30] LABS: BASOPHILS % (AUTO) 0.5 % (0.0-5.0); LYMPHOCYTES % (AUTO) 30.9 % (21.0-51.0); MEAN CORPUSCULAR HEMOGLOBIN 26.8 pg (27.0-33.0); MEAN CORPUSCULAR HGB CONC 32.4 g/dL (32.0-36.0); MEAN CORPUSCULAR VOLUME 82.7 fL (79-99); MONOCYTES % (AUTO) 6.3 % (3.0-13.0); NEUTROPHILS % (AUTO) 60.8 % (40.0-77.0); PLATELET COUNT (AUTO) 285 K/uL (130-400); RED BLOOD CELL COUNT(AUTO) 4.11 MIL/uL (4.00-5.50); RED CELL DISTRIBUTION WIDTH 14.2 % (11.0-15.5); WHITE BLOOD COUNT (AUTO) 8.8 K/uL (4.8-10.8)
[2019-07-09 14:41] LABS: CREATININE 1.1 mg/dL (0.5-1.5); POTASSIUM 3.8 mmol/L (3.5-5.1)
[2019-07-09 14:46] LABS: INR 0.89 (0.85-1.15); PARTIAL THROMBOPLASTIN TIME 23.6 SEC (26.3-35.5); PROTHROMBIN TIME 9.7 SEC (9.6-11.6)
== END 2019-07-09 15:18 | disposition home or self-care (01) ==
LOC: EDH 14:03
DX: M79.605 Pain in left leg (principal); S81.801D Unspecified open wound, right lower leg, subsequent encounter; E11.52 Type 2 diabetes mellitus with diabetic peripheral angiopathy with gangrene; G89.29 Other chronic pain; I10 Essential (primary) hypertension; I96 Gangrene, not elsewhere classified; E78.5 Hyperlipidemia, unspecified; E66.01 Morbid (severe) obesity due to excess calories; X58.XXXD Exposure to other specified factors, subsequent encounter
CPT/HCPCS: 36415; 80048; 85025; 85610; 85730; 93971; 99284; G0463